=== PATIENT | female | born 1945 ===

== ENCOUNTER → 2023-02-11 10:46 | Outpatient (BNVA) | payer MEDICARE, BC, SELFPAY | PROVIDERS: PCP Neuromusculoskeletal Medicine & OMM; Referring Provider Neuromusculoskeletal Medicine & OMM; Visit Provider Student in an Organized Health Care Education/Training Program | DX: J96.10 Chronic respiratory failure, unspecified whether with hypoxia or hypercapnia (principal); G14 Postpolio syndrome; G47.61 Periodic limb movement disorder; G93.32 Myalgic encephalomyelitis/chronic fatigue syndrome | CPT/HCPCS: 99214 ==

== ENCOUNTER → 2024-02-13 10:50 | Outpatient (BNVA) | payer MEDICARE, BC, SELFPAY | PROVIDERS: PCP Neuromusculoskeletal Medicine & OMM; Referring Provider Neuromusculoskeletal Medicine & OMM; Visit Provider Physician Assistant Surgical | DX: J96.10 Chronic respiratory failure, unspecified whether with hypoxia or hypercapnia (principal); G14 Postpolio syndrome; G47.61 Periodic limb movement disorder; G93.32 Myalgic encephalomyelitis/chronic fatigue syndrome | CPT/HCPCS: 99214 ==